=== PATIENT | male | born 1965 | race Caucasian/White ===

== ENCOUNTER → 2021-04-30 | Day surgery (SDC) | payer OTHER ==
[~2021-04-30] MED LIST: LIPITOR40 MG PO; LISINOPRIL20 MG PO; LUNESTA3 MG PO; METFORMIN HCL500 M3 PO; ORTHO DF 3,7751 EACH PO; PREDNISONE 20 M20 MG PO; ULTRAM 50MG TAB50 MG PO
--- NOTE | ~2021-04-30 | PROC ---
[facility] [address] [place] [address] PROCEDURE REPORT Name: GENNA BLAKE Room: [facility].#: [id number] Admission: 04/30/21 Attend Phys: Kleber Hernandez DO Discharge: Date of : 67 Report #: [id number] THIS REPORT FOR: cc: Rosalia Borjas Beth RNP [facility],Medical Records Staff ~ For GI report, please see the Provation report in Perceptive 7 content. By: 0647Medical Records Staff MARISSA /ANJEL
[2021-04-30 09:03] LABS: HEMATOCRIT 39.7 % (42.0-52.0); MCH 26.2 pg (26.0-34.0); MCHC 32.6 g/dL (28.0-37.0); MCV 80.1 fL (80.0-100.0); MPV 6.6 fl. (7.2-11.1); RBC 4.95 mil/uL (4.50-6.00); RDW-CV 21.9 % (10.5-14.5); WBC 11.7 thou/uL (4.0-11.0)
[2021-04-30 09:19] LABS: CALCIUM 9.1 mg/dL (8.5-10.1); POTASSIUM 4.6 mmol/L (3.5-5.1)
--- NOTE | 2021-04-30 14:12 | EKG ---
[place] [address] ELECTROCARDIOGRAM REPORT Name: GENNA BLAKE Room: [facility]#: [id number] Admission: 04/30/21 Attend Phys: Kleber Hernandez, Discharge: Date of : 67 Date of Service: 04/30/21904 Report #: [id number] THIS REPORT FOR: //name// [facility] Test Date: 2021-04-30 Test Time: 09:05:31 Pat Name: GENNA BLAKE Department: Room: Gender: Grape Picker: CHARLES : 1965 Requested By: Benson Morse Order Number: [id number] Lai MD: Genna Carroll Measurements Intervals [place] Rate: 105 P: 34 NH: 146 QRS: 58 QRSD: 83 T: 67 QT: 320 QTc: 423 Interpretive Statements Sinus tachycardia Probable septal infarct, old No previous ECG available for comparison Electronically Signed On 04-30-2021 14:12:27 CDT by Genna Craroll [email or web address] <ELECTRONICALLY SIGNED> By: Genna Carroll MD, [facility] 04/30/21 141 4 4 Genna Carroll MD, FACC /EPI
--- NOTE | 2021-05-02 14:07 | PATH ---
[address] [address] PATHOLOGY RPT PROCEDURE Name: GENNA YOST Room: [facility].#: [id number] Admission: 04/30/21 Date of : 67 Discharge: Report #: [id number] Path Case #: [id number] [facility] Accession Number: [id number] . 01 Material submitted: . rectum - RECTAL BIOPSIES- SEVERE PROCTITIS . 01 Clinical history: . SIGMOIDOSCOPY CROHN'S COLITIS, RECTAL BLEED . 02 Diagnosis: Rectal biopsies: - Chronic colitis typical of Crohn's disease, with moderate activity, negative for granulomas, viral inclusions and dysplasia. See comment. ([facility]ET[facility]:pit; 05/02/2021) QTP 05/02/2021 1226 Local . 02 Comment: The biopsies reveal benign colonic mucosa with extensive evidence of chronic inflammation including marked basal lymphoplasmacytosis and crypt distortion. There is moderate activity with neutrophils mostly in the lamina propria and scattered cryptitis and rare crypt abscess. ([facility]ET[facility]:pit; 05/02/2021) . 02 Electronically signed: . Zain Ambrosio MD, Pathologist NPI- [id number] . 01 Gross description: . The specimen is submitted in formalin, labeled "Genna Yost, rectal biopsy-severe proctitis". Received are 4 segments of pale salas tissue ranging in size from 0.2 to 0.4 cm in maximum dimensions. The specimen is submitted entirely in cassette A1. ([facility]; 05/01/2021) NRI/NRI 05/01/2021 1753 Local . 02 Pathologist provided ICD-10: K52.9 . 02 CPT . 759109 Specimen Comment: A courtesy copy of this report has been sent to [phone], [phone] Specimen Comment: [id number] Specimen Comment: Report sent to / DR MCINTOSH Performed at: [address] [place] [address] PATHOLOGY RPT PROCEDURE Name: GENNA YOST Room: [facility]#: [id number] Admission: 04/30/21 Date of : 67 Discharge: Report #: [id number] Path Case #: [id number] [address] [facility] [address], [place], [place] [id number] MD Kenney Rubio MD Phone: [phone] Performed at: 02 [facility] [address], [place], [place] [id number] MD Zain Ambrosio MD Phone: [phone]
== END | disposition home or self-care (01) ==
LOC: M.SUR 08:27
PROVIDERS: Anesthesiology; ATTEND Internal Medicine Gastroenterology
DX: K50.90 Crohn's disease, unspecified, without complications (principal); K52.9 Noninfective gastroenteritis and colitis, unspecified; Z98.890 Other specified postprocedural states; Z79.899 Other long term (current) drug therapy; Z88.6 Allergy status to analgesic agent; Z20.822 Contact with and (suspected) exposure to COVID-19; Z86.73 Personal history of transient ischemic attack (TIA), and cerebral infarction without residual deficits